=== PATIENT | female | born 1985 | race Two or more races ===

== ENCOUNTER 2022-08-14 15:02 | Emergency (ER) | payer SELFPAY ==
[~2022-08-14] VITALS: Ht 162.6 cm; Wt 137.0 kg
[2022-08-14 18:12] VITALS: BP 136/77
== END 2022-08-14 18:15 | disposition home or self-care (01) ==
LOC: EMS 15:05
DX: S13.4XXA Sprain of ligaments of cervical spine, initial encounter (principal); V49.88XA Car occupant (driver) (passenger) injured in other specified transport accidents, initial encounter; Y93.89 Activity, other specified; Y92.89 Other specified places as the place of occurrence of the external cause; Y99.8 Other external cause status
CPT/HCPCS: 71046; 72040; 99284